=== PATIENT | male | born 1955 | race Caucasian/White ===

== ENCOUNTER 2018-08-16 06:43 | Day surgery (SDC) | payer OTHER ==
[~2018-08-16 06:43] MED LIST: SOD CHLORIDE 0.45% 1,000 ML IV
[2018-08-16 07:50] LABS: ADD MAN DIFF? NO
[2018-08-16 07:54] LABS: BASOPHIL # 0.1 10^3/ul (0.0-0.1); BASOPHILS % 0.8 % (0.0-2.0); EOSINOPHILS # 0.2 10^3/ul (0.0-0.5); HEMATOCRIT 42.2 % (42.0-52.0); HEMOGLOBIN 13.8 g/dl (14.0-18.0); LYMPHOCYTES # 1.6 10^3/ul (0.8-2.9); LYMPHOCYTES % 21.9 % (15.0-51.0); MEAN CORPUSCULAR HEMOGLOBIN 29.2 pg (29.0-33.0); MEAN CORPUSCULAR HGB CONC 32.7 g/dl (32.0-37.0); MEAN CORPUSCULAR VOLUME 89.2 fl (82.0-101.0); MEAN PLATELET VOLUME 9.2 fl (7.4-10.4); MONOCYTE # 0.7 10^3/ul (0.3-0.9); MONOCYTES % 9.9 % (0.0-11.0); NEUTROPHIL # 4.8 10^3/ul (1.6-7.5); NEUTROPHILS % 65.1 % (39.0-77.0); PLATELET COUNT 245 10^3/UL (140-415); RED BLOOD COUNT 4.73 10^6/ul (4.70-6.10); RED CELL DISTRIBUTION WIDTH 13.2 % (11.5-14.5)
[2018-08-16 07:54] LABS: WHITE BLOOD COUNT 7.4 10^3/ul (4.8-10.8)
[2018-08-16 08:15] LABS: INR 1.01; PARTIAL THROMBOPLASTIN TIME 33.1 Sec (23.0-35.0); PROTIME 13.4 Sec (11.9-14.9)
[2018-08-16 08:20] LABS: ANION GAP 8 (5-13); CALCIUM 9.2 mg/dl (8.4-10.2); CARBON DIOXIDE 28 mmol/L (21-31); CHLORIDE 106 mmol/L (97-110); Estimated GFR 30 mL/min (>60); GLUCOSE 111 mg/dl (70-220)
[2018-08-16 08:24] LABS: BLOOD UREA NITROGEN 29 mg/dl (7-20); POTASSIUM 4.5 mmol/L (3.5-5.1); SODIUM 142 mmol/L (135-144)
[2018-08-16] MEDS ORDERED: PROPOFOL 40 ML (09:27)
[2018-08-16] MEDS ORDERED: FENTAnyl 50 MCG/ML VIAL (09:27)
[2018-08-16] MEDS ORDERED: LIDOCAINE 100 MG SYRINGE (09:27)
== END 2018-08-16 13:00 | disposition home or self-care (01) ==
LOC: SDS 06:43
DX: I34.0 Nonrheumatic mitral (valve) insufficiency (principal); I25.10 Atherosclerotic heart disease of native coronary artery without angina pectoris; E78.5 Hyperlipidemia, unspecified; I42.9 Cardiomyopathy, unspecified
CPT/HCPCS: 71045; 80048; 85025; 85610; 85730; 93005; 93312; 93320; 93325